=== PATIENT | female | born 1965 | race Caucasian/White ===

== ENCOUNTER → 2017-07-14 | Outpatient (CLI) | payer OTHER ==
[~2017-07-14] MED LIST: DOCU1CAP39 PO; LINA145C PO; MULT1TAB46 PO; OMPR20CCR PO
[2017-07-14 11:43] LABS: AUTOMATED NEUTROPHIL # 4.2 TH/MM3 (1.8-7.7); BASOPHIL % 0.4 % (0.0-2.0); EOSINOPHIL # 0.1 TH/MM3 (0-0.4); EOSINOPHIL % 1.1 % (0.0-4.0); HEMO FLAGS DIFF FINAL; LYMPH % 25.5 % (9.0-44.0); LYMPHOCYTE # 1.6 TH/MM3 (1.0-4.8); MEAN CELL VOLUME 90.9 FL (80.0-100.0); MEAN CORPUSCULAR HEMOGLOBIN 30.6 PG (27.0-34.0); MEAN CORPUSCULAR HGB CONC 33.7 % (32.0-36.0); MONO % 6.5 % (0.0-8.0); NEUT % 66.5 % (16.0-70.0); PLATELET COUNT 203 TH/MM3 (150-450); RED BLOOD COUNT 5.17 MIL/MM3 (4.00-5.30); RED CELL DISTRIBUTION WIDTH 13.3 % (11.6-17.2); WHITE BLOOD COUNT 6.4 TH/MM3 (4.0-11.0)
[2017-07-14 12:05] LABS: ANION GAP 4 MEQ/L (5-15); AST (GOT) 17 U/L (15-37); BLOOD UREA NITROGEN 16 MG/DL (7-18); CHLORIDE 103 MEQ/L (98-107); GLOMERULAR FILTRATION RATE 87 ML/MIN (>89); GLUCOSE,FASTING 85 MG/DL (74-99); POTASSIUM 4.7 MEQ/L (3.5-5.1); SODIUM (NA) 137 MEQ/L (136-145)
[2017-07-14 12:06] LABS: ALT (GPT) 25 U/L (10-53)
[2017-07-14 12:14] LABS: ALKALINE PHOSPHATASE 90 U/L (45-117); HDL CHOLESTEROL 58.4 MG/DL (40.0-60.0); LDL CHOLESTEROL 149 MG/DL (0-99)
== END ==
LOC: CLAB 11:00
PROVIDERS: ATTEND Family Medicine
DX: N28.9 Disorder of kidney and ureter, unspecified (principal); N20.0 Calculus of kidney; Z68.34 Body mass index [BMI] 34.0-34.9, adult
CPT/HCPCS: 36415; 80053; 80061; 84439; 84443; 85025

== ENCOUNTER 2017-09-17 11:24 | Emergency (ER) | payer OTHER ==
[~2017-09-17] VITALS: Ht 160 cm; Wt 85.0 kg
[~2017-09-17 11:24] MED LIST changes: -DOCU1CAP39 PO; -LINA145C PO; -OMPR20CCR PO
[2017-09-17 11:25] VITALS: BP 157/99; PULSE 74; RESP 18; TEMP 98; O2SAT 99
[2017-09-17 11:45] VITALS: BP 170/93; PULSE 76; RESP 18; TEMP 97.6; O2SAT 100
[2017-09-17] MEDS ORDERED: SODIUM CHLOR 0.9% 1000 ML INJ 1,000 ML IV ONE (11:46)
[2017-09-17] MEDS ORDERED: COLA100C5 (11:52)
[2017-09-17] MEDS ORDERED: MULTTAB67 PO (11:52)
[2017-09-17] MEDS ORDERED: VITACAP7 PO (11:52)
--- NOTE | 2017-09-17 11:53 | PD ---
HPI Chief Complaint: Flank/Kidney Pain Time Seen by Provider: 11:38 Travel History International Travel<30 days: No Contact w/Intl Traveler<30days: No Traveled to known affect area: No History of Present Illness HPI 51-year-old female presents to the emergency department for evaluation of right flank pain that started Wednesday night, one and a half days ago. Patient does report history of nephrolithiasis, but states it is always on the left side. Her left kidney was not flushing well and producing multiple kidney stones that she had a left nephrectomy in the past. She also reports history of partial hysterectomy. Patient does state the pain is worse with movement. She denies any urinary symptoms. She denies any abdominal pain. No nausea, vomiting, diarrhea, constipation. No fevers or chills. No chest pain or shortness of breath. Patient states that she does not tolerate pain medications well and does not want to take anti-inflammatories if possible due to having one kidney. She is declining pain medication at this time. Patient did take naproxen last night ibuprofen this morning for pain. Moderate severity. Alleviating factor is lying still. Current pain is 6/10, no radiation, sharp in nature. PFSH Social History Alcohol Use: No Tobacco Use: No Substance Use: No Allergies-Medications (Allergen,Severity, Reaction): Coded Allergies: Penicillins (Verified Allergy, Severe, Rash, 09/17/17) Reported Meds & Prescriptions Reported Meds & Active Scripts Active Reported Colace (Docusate Sodium) 100 Mg Capsule B Complex (B-Complex Vitamins) 1 Cap 1 Cap PO DAILY Multiple Vitamin 1 Tab 1 Tab PO DAILY Review of Systems Except as stated in HPI: all other systems reviewed are Neg Physical Exam Narrative GENERAL: Well-nourished, well-developed female patient, ambulatory. Afebrile. SKIN: Focused skin assessment warm/dry. No rash noted to right flank. HEAD: Normocephalic. Atraumatic. EYES: No scleral icterus. No injection or drainage. NECK: Supple, trachea midline. No JVD or lymphadenopathy. CARDIOVASCULAR: Regular rate and rhythm without murmurs, gallops, or rubs. RESPIRATORY: Breath sounds equal bilaterally. No accessory muscle use. Lungs sounds are clear to auscultation. GASTROINTESTINAL: Abdomen soft, non-tender, nondistended. No abdominal pain to palpation. MUSCULOSKELETAL: No cyanosis, or edema. BACK: Nontender without obvious deformity. Right CVA tenderness. Data Data Last Documented VS Vital Signs Date Time Temp Pulse Resp B/P (MAP) Pulse Ox O2 Delivery O2 Flow Rate FiO2 09/17/17 11:47 76 18 09/17/17 11:45 97.6 170/93 (118) 100 Room Air Orders Orders Complete Blood Count With Diff (09/17/17 11:46) Comprehensive Metabolic Panel (09/17/17 11:46) Urinalysis - C+S If Indicated (09/17/17 11:46) Ct Abd/Pel W/O Iv Contrast (09/17/17 11:46) Ecg Monitoring (09/17/17 11:46) Iv Access Insert/Monitor (09/17/17 11:46) Sodium Chloride 0.9% Flush (Ns Flush) (09/17/17 12:00) Sodium Chlor 0.9% 1000 Ml Inj (Ns 1000 M (09/17/17 11:46) Urine Culture (09/17/17 12:05) Methocarbamol (Robaxin) (09/17/17 14:30) Labs Laboratory Tests Test 09/17/17 12:05 09/17/17 13:30 White Blood Count 5.2 TH/MM3 Red Blood Count 4.91 MIL/MM3 Hemoglobin 15.3 GM/DL Hematocrit 44.7 % Mean Corpuscular Volume 91.1 FL Mean Corpuscular Hemoglobin 31.1 PG Mean Corpuscular Hemoglobin Concent 34.2 % Red Cell Distribution Width 14.1 % Platelet Count 218 TH/MM3 Mean Platelet Volume 9.3 FL Neutrophils (%) (Auto) 54.3 % Lymphocytes (%) (Auto) 33.3 % Monocytes (%) (Auto) 8.6 % Eosinophils (%) (Auto) 3.0 % Basophils (%) (Auto) 0.8 % Neutrophils # (Auto) 2.8 TH/MM3 Lymphocytes # (Auto) 1.7 TH/MM3 Monocytes # (Auto) 0.4 TH/MM3 Eosinophils # (Auto) 0.2 TH/MM3 Basophils # (Auto) 0.0 TH/MM3 CBC Comment DIFF FINAL Differential Comment Urine Color LIGHT-YELLOW Urine Turbidity HAZY Urine pH 6.0 Urine Specific Raymond 1.005 Urine Protein NEG mg/dL Urine Glucose (UA) NEG mg/dL Urine Ketones NEG mg/dL Urine Occult Blood NEG Urine Nitrite NEG Urine Bilirubin NEG Urine Urobilinogen LESS THAN 2.0 MG/DL Urine Leukocyte Esterase NEG Urine RBC 1 /hpf Urine WBC 1 /hpf Urine Squamous Epithelial Cells 20 /hpf Urine Bacteria MOD /hpf Urine Mucus FEW /lpf Microscopic Urinalysis Comment CULTURE INDICATED Blood Urea Nitrogen 15 MG/DL Creatinine 0.63 MG/DL Random Glucose 80 MG/DL Total Protein 7.2 GM/DL Albumin 3.9 GM/DL Calcium Level 8.8 MG/DL Alkaline Phosphatase 87 U/L Aspartate Amino Transf (AST/SGOT) 24 U/L Alanine Aminotransferase (ALT/SGPT) 38 U/L Total Bilirubin 0.8 MG/DL Sodium Level 142 MEQ/L Potassium Level 4.1 MEQ/L Chloride Level 110 MEQ/L Carbon Dioxide Level 26.5 MEQ/L Anion Gap 6 MEQ/L Estimat Glomerular Filtration Rate 100 ML/MIN [facility] Medical Decision Making Medical Screen Exam Complete: Yes Emergency Medical Condition: Yes Medical Record Reviewed: Yes Interpretation(s) ct abdomen/pelvis - Ct abdomen/pelvis - CONCLUSION: 1. Status post left nephrectomy otherwise negative. 2. Pyelonephritis cannot be excluded without contrast. Differential Diagnosis Muscle strain versus muscle spasm versus nephrolithiasis versus urolithiasis versus UTI versus pyelonephritis versus dehydration Narrative Course 51-year-old female presents to the emergency department for evaluation of right flank pain that started 1-1/2 days ago. IV access established. CBC, CMP, UA are ordered and pending. CT abdomen/pelvis without contrast is ordered and pending. Patient is given normal saline 1 L IV bolus. She declines pain medication at this time. CBC is unremarkable. CMP shows no acute abnormality. UA shows moderate bacteria. CT abdomen/pelvis shows status post left nephrectomy otherwise negative; Pyelonephritis cannot be excluded without contrast. Patient declines pain medication. She states she will try a muscle relaxant. Physical exam, imaging, laboratory results are reassuring. The patient verbalizes agreement. She'll also be started on Macrobid for possible UTI. She verbalizes agreement to this. She is to follow her primary care physician. She is to return here for any acute worsening of symptoms. Patient is instructed to monitor for possible shingles rash. She does not have a rash at this time, but this would be in the differential if the rash does appear. The patient was discharged in stable condition with instructions, including return instructions and follow up instructions. Diagnosis Primary Impression: Flank pain Additional Impression: Urinary tract infection Qualified Codes: N30.00 - Acute cystitis without hematuria Referrals: Primary Care Physician call for appointment Patient Instructions: Flank Pain (ED), General Instructions, Urinary Tract Infection in Women (ED) Departure Forms: Tests/Procedures, Work Release Enter return to work date: Sep 20, 2017 Additional Instructions: Take Macrobid as directed until gone. Take Robaxin as directed as needed. Follow-up with your primary care physician. Return to the emergency department for any acute worsening of symptoms. Med/Other Pt SpecificInfo: Prescription(s) given Scripts Methocarbamol (Robaxin) 500 Mg Tab 500 MG PO TID Y for MUSCLE PAIN, #21 TAB 0 Refills Prov: Emily Headley 09/17/17 Nitrofurantoin Monohydrate Macrocrystals (Macrobid) 100 Mg Capsule 100 MG PO BID for Infection for 7 Days, #14 CAP 0 Refills Prov: Emily Headley 09/17/17 Disposition: 01 DISCHARGE HOME Condition: Stable Emily Headley Sep 17, 2017 11:53
[2017-09-17] MEDS ORDERED: SODIUM CHLORIDE 0.9% FLUSH 10 ML FLUSH IVF PRN (12:00)
[2017-09-17 12:14] LABS: AUTOMATED NEUTROPHIL # 2.8 TH/MM3 (1.8-7.7); BASOPHIL % 0.8 % (0.0-2.0); EOSINOPHIL # 0.2 TH/MM3 (0-0.4); HEMATOCRIT 44.7 % (35.0-46.0); HEMO FLAGS DIFF FINAL; LYMPH % 33.3 % (9.0-44.0); LYMPHOCYTE # 1.7 TH/MM3 (1.0-4.8); MEAN CELL VOLUME 91.1 FL (80.0-100.0); MEAN CORPUSCULAR HEMOGLOBIN 31.1 PG (27.0-34.0); MEAN CORPUSCULAR HGB CONC 34.2 % (32.0-36.0); MONO % 8.6 % (0.0-8.0); NEUT % 54.3 % (16.0-70.0); PLATELET COUNT 218 TH/MM3 (150-450); RED BLOOD COUNT 4.91 MIL/MM3 (4.00-5.30); RED CELL DISTRIBUTION WIDTH 14.1 % (11.6-17.2); WHITE BLOOD COUNT 5.2 TH/MM3 (4.0-11.0)
[2017-09-17 12:16] LABS: BACTERIA, URINE MOD /hpf; BLOOD, URINE NEG (NEG); COMMENT (UR) CULTURE INDICATED; CULTURE IF INDICATED CULTURE INDICATED; GLUCOSE,URINE NEG (NEG); KETONE, URINE NEG (NEG); MUCUS URINE FEW /lpf (OCC); NITRITE,URINE NEG (NEG); SQUAMOUS EPITHELIAL CELL URINE 20 /hpf (0-5); URINE COLOR LIGHT-YELLOW (YELLW/STRAW)
[2017-09-17 12:42] LABS: ALKALINE PHOSPHATASE 87 U/L (45-117); TOTAL BILIRUBIN ADULT 0.8 MG/DL (0.2-1.0)
--- NOTE | 2017-09-17 12:46 | RADRPT ---
EXAM DATE/TIME: 09/17/2017 12:28 [facility] COMPARISON: No previous studies available for comparison. INDICATIONS : Mid upper back pain with difficulty urinating. ORAL CONTRAST: No oral contrast ingested. RADIATION DOSE: 8.64 CTDIvol (mGy) MEDICAL HISTORY : None SURGICAL HISTORY : Nephrectomy, left. ENCOUNTER: Initial ACUITY: 1 day PAIN SCALE: 5/10 LOCATION: Bilateral flank TECHNIQUE: Volumetric scanning of the abdomen and pelvis was performed. Using automated exposure control and ad justment of the mA and/or kV according to patient size, radiation dose was kept as low as reasonably achievable to obtain optimal diagnostic quality images. DICOM format image data is available electro nically for review and comparison. FINDINGS: LOWER LUNGS: The visualized lower lungs are clear. LIVER: Homogeneous density without lesion. There is no dilation of the biliary tree. No calcified gallston es. SPLEEN: Normal size without lesion. PANCREAS: Within normal limits. KIDNEYS: Single left kidney is noted without stone or obstruction. ADRENAL GLANDS: The right adrenal gland is normal. VASCULAR: There is no aortic aneurysm. BOWEL/MESENTERY: The stomach, small bowel, and colon demonstrate no acute abnormality. There is no free intraperitone al air or fluid. ABDOMINAL WALL: Within normal limits. RETROPERITONEUM: There is no lymphadenopathy. BLADDER: No wall thickening or mass. REPRODUCTIVE: Within normal limits. INGUINAL: There is no lymphadenopathy or hernia. MUSCULOSKELETAL: Degenerative changes lower lumbar spine. CONCLUSION: 1. Status post left nephrectomy otherwise negative. 2. Pyelonephritis cannot be excluded without contrast. Kirill Mcduffie MD FACR on September 17, 2017 at 12:41 Board Certified Radiologist. This report was verified electronically.
[2017-09-17 13:59] LABS: ALT (GPT) 38 U/L (10-53); ANION GAP 6 MEQ/L (5-15); AST (GOT) 24 U/L (15-37); BICARBONATE 26.5 MEQ/L (21.0-32.0); BLOOD UREA NITROGEN 15 MG/DL (7-18); CHLORIDE 110 MEQ/L (98-107); GLOMERULAR FILTRATION RATE 100 ML/MIN (>89); POTASSIUM 4.1 MEQ/L (3.5-5.1); SODIUM (NA) 142 MEQ/L (136-145)
[2017-09-17] MEDS ORDERED: ROBA500T PO (14:27)
[2017-09-17] MEDS ORDERED: MACR100C2 PO (14:27)
[2017-09-17] MEDS ORDERED: METHOCARBAMOL 500 MG TAB PO ONE (14:30)
[2017-09-17 15:43] VITALS: BP 137/76; TEMP 97.7
== END 2017-09-17 15:10 | disposition home or self-care (01) ==
LOC: NEPC 11:24 → MERGE 11:24 → NEPC 15:10
DX: N39.0 Urinary tract infection, site not specified (principal); B96.89 Other specified bacterial agents as the cause of diseases classified elsewhere; Z88.0 Allergy status to penicillin
CPT/HCPCS: 74176; 80053; 81001; 85025; 87086; 96360; 99285; J7030